=== PATIENT | male | born 1985 | race Two or more races ===

== ENCOUNTER 2024-03-22 16:57 | Emergency (ER) | payer MEDICAID, SELFPAY ==
[2024-03-22 17:30] VITALS: BP 151/91; PULSE 69; RESP 18; TEMP 36.8; O2SAT 97; BMI 32.2
[2024-03-22] MEDS: KETOROLAC INJ 30 MG/ML VIAL IM (17:47)
--- NOTE | 2024-03-22 17:49 | EDNOTE_ITS ---
<Statement entered by Evelyn Molina MD - 03/23/24 07:40> As co-signing physician, I was present and available for consult prn. I concur with the plan and care as documented by the midlevel provider. ED General RME/HPI General Chief complaint: General Adult/Misc Complain Stated complaint: RIGHT RIB PAIN X 1 WK Time Seen by Provider: 03/22/24 17:38 Arrival date/time: 03/22/24 16:57 38-year-old male presents to emergency department with complaints of pain to the right lower back/hip region ongoing x 1 week patient ports pain is worse with movement Limitations: no limitations Related Data Previous Rx's ?Medication ?Instructions ?Recorded acetaminophen 325 mg capsule 975 mg (3 x 325 mg) PO Q6H PRN 10/12/19 pain #30 caps ibuprofen 800 mg tablet 800 mg PO TID PRN pain #30 tabs 10/12/19 cyclobenzaprine 10 mg tablet 10 mg PO TID PRN muscle spasm 10 03/22/24 days #30 tab-caps ibuprofen 800 mg tablet 800 mg PO TID PRN pain #30 tabs 03/22/24 Allergies Allergy/AdvReac Type Severity Reaction Status Date / Time No Known Allergies Allergy Verified 03/22/24 16:59 Review of Systems Review of Systems Systems Reviewed: All systems reviewed, normal except as documented Constitutional Constitutional: Reports system reviewed and no additional complaints, except as documented, Denies fever(s) and Denies headache(s) Eyes Eyes: Reports system reviewed and no additional complaints, except as documented and Denies blurry vision ENT Ears, Nose, Mouth, and Throat: Reports system reviewed and no additional complaints, except as documented, Denies headache(s), Denies nasal congestion and Denies nasal discharge Cardiovascular Cardiovascular: Reports system reviewed and no additional complaints, except as documented, Denies chest pain and Denies dyspnea Respiratory Respiratory: Reports system reviewed and no additional complaints, except as documented, Denies chest congestion, Denies cough and Denies dyspnea Gastrointestinal Gastrointestinal: Reports system reviewed and no additional complaints, except as documented and Denies abdominal pain Musculoskeletal Musculoskeletal: Reports system reviewed and no additional complaints, except as documented and Reports other (Pain right hip) Integumentary/Breasts Skin/Breast: Reports system reviewed and no additional complaints, except as documented and Denies rash Neurologic Neurologic: Reports system reviewed and no additional complaints, except as documented, Reports as per HPI and Denies headache(s) Past Medical History Past Medical History NEUROLOGIC: Negative Neurological Disorders CARDIAC: Negative Cardiac Disorders MUSCULOSKELETAL: Negative Musculoskeletal Disorders HEMATOLOGIC: Positive Blood Disorders Social History SMOKING STATUS: Never smoker ED Exam General Limitations: Present no limitations General appearance: Present alert and in no apparent distress Head Head exam: Present atraumatic Eye Eye exam: Present normal appearance, PERRL and EOMI ENT ENT exam: Present normal exam, normal oropharynx and mucous membranes moist Neck Neck exam: Present normal inspection, full ROM and trachea midline Chest Chest inspection: Present normal inspection and symmetric chest wall rise Respiratory Respiratory exam: Present normal lung sounds bilaterally Cardiovascular Cardiovascular exam: Present regular rate, normal rhythm and normal heart sounds Abdominal Exam Abdominal exam: Present soft and normal bowel sounds Extremities Exam Extremities exam: Present normal inspection and full ROM Back Exam Back exam: Present normal inspection, full ROM, tenderness, muscle spasm, paraspinal tenderness, sciatic notch tenderness (R) and straight leg raise (R); Absent CVA tenderness (R) or CVA tenderness (L) Neurological Exam Neurological exam: Present alert, oriented X3, CN II-XII intact, normal gait and reflexes normal; Absent motor sensory deficit Psychiatric Psychiatric exam: Present normal affect and normal mood Skin Skin exam: Present warm, dry, intact and normal color Course Quality Measures none Orders Category Date Time Status Ketorolac Inj [Toradol Inj] Med 03/22/24 17:38 Discontinued 30 mg IM X1 ONE Vital Signs Vital signs: Vital Signs Temperature 98.2 F 03/22/24 17:30 Pulse Rate 69 03/22/24 17:30 Respiratory Rate 18 03/22/24 17:30 Blood Pressure 151/91 H 03/22/24 17:30 Pulse Oximetry (%) 97 03/22/24 17:30 Oxygen Delivery Method Room Air 03/22/24 17:30 O2 saturation 97% room air within normal limits MDM Patient data External records reviewed:: [facility] previous records Clinical information provided by:: patient Social determinants that could affect healthcare access:: none Patient has the following chronic illnesses:: None How is presenting disease/condition affected by chronic disease/condition?: no chronic disease Evaluation data The following diagnostics were reviewed and interpreted by me:: other (specify) (N/A) Lab and/or radiology exams considered but not ordered:: Not ordered Interpretation Summary: N/A Medications Medications considered but not ordered:: Given Medication administrations:: Medication Administration History Discontinued Medications Ketorolac Tromethamine (Ketorolac Inj 30 Mg/Ml Vial) 30 mg IM X1 ONE Stop: 03/22/24 17:39 Last Admin: 03/22/24 17:47 Dose: 30 mg Documented By: MP Given Consultations Consultation(s) initiated? (list below): No Diagnosis Differential Diagnosis ED Complaint MDM: Hip sprain, hip strain, muscle spasm, sciatica Most likely diagnosis given after review of the tests above:: Hip pain right Admission Indicated Admission indicated?: not indicated Explain why admission is indicated or not indicated:: no criteria Admission Request Was there a request for admission?: No Disposition Plan Disposition Plan: Discharge Discharge Attestation Discharge Attestation: The patient and all family members were given an opportunity to ask questions and understood the discharge instructions. Discharge instructions specifically effects, indications for sooner follow up or return to the emergency department, and the expected course of current diagnosis. Patient condition: Stable Medical Decision Making MDM Narrative MDM Narrative: 38-year-old male presents to emergency department with complaints of pain to the right lower back/hip region ongoing x 1 week patient reports pain is worse with movement On exam patient has pain to the right hip/sciatic region On exam patient has positive right leg test positive pain to the right sciatic notch patient reports no saddle anesthesia or loss of bowel or bladder Symptoms consistent with sciatica/muscle spasm Patient given Toradol for pain explained the patient her pain persist he may need imaging for further evaluation Patient discharged home in no distress to follow-up with primary care doctor in the next 24 to 48 hours and for any worsening symptoms to return to the ER immediately Differential Diagnosis Differential Diagnosis: Hip sprain, hip strain, muscle spasm, sciatica Medical Records Medical records reviewed: Yes I reviewed the patient's medical records. Discharge Plan Plan Patient Disposition: HOME (Self Care) Disposition Comment: Stable Prescriptions/Referrals Prescriptions/Med Rec: New cyclobenzaprine 10 mg tablet 10 mg PO TID PRN (Reason: muscle spasm) 10 Days Qty: 30 0RF ibuprofen 800 mg tablet 800 mg PO TID PRN (Reason: pain) Qty: 30 0RF No Action ibuprofen 800 mg tablet 800 mg PO TID PRN (Reason: pain) Qty: 30 0RF acetaminophen 325 mg capsule 975 mg PO Q6H PRN (Reason: pain) Qty: 30 0RF Problem List Clinical Impression: Back pain Patient/Caregiver Discharge Instructions Education Materials: Back Safety: Lifting Additional Instructions: Please follow up with your primary care doctor in the next 24-48hrs for any worsening symptoms return here immediately Print Language: French Stand Alone Forms: Karyn Award Info., Work/School Release, Patient Portal Info Letter PA/FAMILY SPECIALIST Supervising Physician PA/FAMILY SPECIALIST Supervising Physician: Dr. Molina
== END 2024-03-22 18:16 | disposition home or self-care (01) ==
LOC: SERX 18:01
PROVIDERS: Emergency Provider Emergency Medicine
DX: M54.50 Low back pain, unspecified (principal); M25.551 Pain in right hip
CPT/HCPCS: 96372; 99283; J1885